=== PATIENT | female | born 2000 | race Hispanic/Latino ===

== ENCOUNTER 2023-10-10 11:16 | Inpatient (IN) | payer MEDICAID, OTHER, SELFPAY ==
[2023-10-11 21:32] VITALS: BMI 35.2
[2023-10-11] MEDS ORDERED: Promethazine HCl 25 MG/ML VIAL IM PRN (21:50)
[2023-10-11] MEDS ORDERED: Misoprostol 200 MCG TAB PR PRN (21:50)
[2023-10-11] MEDS ORDERED: hydrALAZINE 20 MG/ML VIAL SLOW IVP PRN (21:50)
[2023-10-11] MEDS ORDERED: Carboprost 250 MCG/ML AMP IM PRN (21:50)
[2023-10-11] MEDS ORDERED: Ibuprofen 800 MG TAB PO PRN (21:50)
[2023-10-11] MEDS ORDERED: Methylergonovine 0.2 MG/ML VIAL IM PRN (21:50)
[2023-10-11] MEDS ORDERED: Lidocaine 1% (PF) 30 ML VIAL SC PRN (21:50)
[2023-10-11] MEDS ORDERED: Diphenoxylate HCl/Atropine Tablet PO PRN (21:50)
[2023-10-11] MEDS ORDERED: Ondansetron PF 4 MG/2 ML Vial IVP PRN (21:50)
[2023-10-11] MEDS ORDERED: HYDROcodone/Acetaminophen 5/325 mg Tablet PO PRN (21:50)
[2023-10-11] MEDS ORDERED: fentaNYL 50 mcg/mL 1 mL Vial SLOW IVP PRN (21:50)
[2023-10-11] MEDS ORDERED: Acetaminophen 500 MG TAB PO PRN (21:50)
[2023-10-11] MEDS ORDERED: Tranexamic Acid 1,000 MG/10 ML VIAL IVP PRN (21:50)
[2023-10-11] MEDS ORDERED: Lactated Ringer's 1,000 ML IV SCH (22:00)
[2023-10-11] MEDS ORDERED: Oxytocin 30 units/NS 500 ML 500 ML IV SCH (22:00)
[2023-10-11] MEDS: Misoprostol 100 MCG TAB PO SCH (22:15)
[2023-10-11 22:29] LABS: Hematocrit 34.9 % (34.9-44.5); Hemoglobin 12.2 g/dL (12.0-15.5); Mean Corpuscular Hemoglobin 27.9 pg (27.0-33.0); Mean Corpuscular Volume 79.9 fl (81.6-98.3); Mean Platelet Volume 11.1 fl (7.4-10.4); Platelet Count 285 10x3/uL (150-450); RBC Distribution Width 14.9 % (11.5-14.5); Red Blood Cell (RBC) Count 4.37 10x6/uL (3.90-5.03); White Blood Cell (WBC) Count 8.9 10x3/uL (3.5-10.5)
[2023-10-11 22:58] LABS: Syphilis Antibody Nonreactive (Nonreactive); Syphilis Antibody Index 0.04 S/CO (<1.00 Non-Reactive)
[2023-10-11 23:00] LABS: HBsAg Index 0.19 S/CO (0-0.99); Hep B Surf Ag - L&D Non-Reactive S/CO (NonReactive)
[2023-10-12] MEDS: Oxytocin 30 units/NS 500 ML 500 ML IV SCH ×2 (10:34→14:49)
[2023-10-12] MEDS ORDERED: Lanolin Ointment 7 GM TUBE TOP PRN (17:55)
[2023-10-12] MEDS ORDERED: HYDROcodone/Acetaminophen 5/325 mg Tablet PO PRN (17:55)
[2023-10-12] MEDS ORDERED: Benzocaine-Menthol 82.5 ML CAN TOP PRN (17:55)
[2023-10-12] MEDS ORDERED: Boostrix 0.5 ML (Tdap) VIAL (>/=7 yrs of age) IM ONE (17:55)
[2023-10-12] MEDS ORDERED: hydrALAZINE 20 MG/ML VIAL SLOW IVP PRN (17:55)
[2023-10-12] MEDS ORDERED: Promethazine HCl 25 MG/ML VIAL IM PRN (17:55)
[2023-10-12] MEDS ORDERED: diphenhydrAMINE 25 MG CAP PO PRN (17:55)
[2023-10-12] MEDS ORDERED: Milk Of Magnesia 30 ML UDCUP PO PRN (17:55)
[2023-10-12] MEDS ORDERED: Ondansetron PF 4 MG/2 ML Vial IVP PRN (17:55)
[2023-10-12] MEDS ORDERED: Bisacodyl 10 MG SUPP PR PRN (17:55)
[2023-10-12] MEDS: Ibuprofen 800 MG TAB PO SCH (18:49)
[2023-10-12] MEDS: Docusate 100 MG CAP PO SCH (21:35)
[2023-10-13] MEDS: Ferrous Sulfate 325 MG TAB PO SCH (07:31)
[2023-10-13] MEDS: Prenatal Vitamin 1 TAB PO SCH (09:18)
[2023-10-13 15:59] VITALS: BP 112/51; TEMP 98.6
== END 2023-10-13 17:15 | disposition home or self-care (01) | DRG 807 ==
LOC: CSHLD 10-11 20:09 → CSHPP 10-12 16:30
PROVIDERS: ADMIT Family Medicine; ATTEND Family Medicine
PROC: 10E0XZZ Delivery of Products of Conception, External Approach (ICD-10-PCS; principal; 2023-10-12)
PROC: 10907ZC Drainage of Amniotic Fluid, Therapeutic from Products of Conception, Via Natural or Artificial Opening (ICD-10-PCS; 2023-10-12)
DX: O48.0 Post-term pregnancy (principal); Z37.0 Single live birth; Z3A.40 40 weeks gestation of pregnancy
CPT/HCPCS: 36415; 85027; 86780; 86850; 86900; 86901; 87340; J2590